=== PATIENT | female | born 1930 | race Caucasian/White ===

== ENCOUNTER 2016-11-08 18:40 | Inpatient (IN) | payer MEDICARE, BC ==
--- NOTE | 2016-11-08 19:11 | EDM.PDOC ---
ED HPI GENERAL MEDICAL PROBLEM - General Chief Complaint: General Stated Complaint: NOT FEELING GOOD, BY AMBULANCE Time Seen by Provider: 11/08/16 18:55 Source of Information: Reports: Patient History Limitations: Reports: No Limitations - History of Present Illness INITIAL COMMENTS - FREE TEXT/NARRATIVE: This 86 yo female patient was brought to the ED by [facility]. The patient reports she is not too sure why she is here, but she knows that her called the ambulance. The patient reports she has had some increased shortness of breath for the past 2-3 days. The patient reports she has noticed some swelling in her legs during the past 2-3 days also. The patient states that she has been taking all of her medications as prescribed. The patient reports her primary care provider is Dr. Watters with her last visit being about 1 month ago. The patient reports she has been sleeping in her chair for the past couple of nights due to increased shortness of breath when she lyes down. Initially, the patient was disoriented when speaking with nursing staff, but the patient was alert and oriented upon my visit with the patient. Onset: Gradual Duration: Day(s): (2-3) Location: Reports: Chest (shortness of breath), Lower Extremity, Left (swelling) , Lower Extremity, Right (swelling) Quality: Reports: Dull, Pressure Severity: Moderate Improves with: Reports: Rest Worsens with: Reports: Movement Associated Symptoms: Reports: Shortness of Breath - Related Data Allergies Allergy/AdvReac Type Severity Reaction Status Date / Time lidocaine Allergy UNKNOWN Verified 06/09/16 10:51 AMLODIPINE BESYLATE Allergy UNKNOWN Uncoded 06/09/16 10:51 Home Meds: Home Meds Amitriptyline [Elavil] 25 mg PO DAILY 11/08/16 [History] Chlorthalidone 25 mg PO DAILY 11/08/16 [History] Clopidogrel [Plavix] 75 mg PO DAILY 11/08/16 [History] Glimepiride 1 mg PO WITHBREAKFAST 11/08/16 [History] Metoprolol Tartrate [Metoprolol Tartrate] 25 mg PO BID 11/08/16 [History] Potassium Chloride 10 meq PO TID 11/08/16 [History] ED ROS GENERAL - Review of Systems Review Of Systems: ROS reveals no pertinent complaints other than HPI. ED EXAM, GENERAL - Physical Exam Exam: See Below Exam Limited By: No Limitations General Appearance: Alert, WD/WN, No Apparent Distress, Obese Eye Exam: Bilateral Eye: EOMI, Normal Inspection, PERRL Ears: Normal External Exam, Normal Canal, Hearing Grossly Normal, Normal TMs Nose: Normal Inspection, Normal Mucosa, No Blood Throat/Mouth: Normal Inspection, Normal Lips, Normal Teeth, Normal Gums, Normal Oropharynx, Normal Voice, No Airway Compromise Head: Atraumatic, Normocephalic Neck: Normal Inspection, Supple, Non-Tender, Full Range of Motion Respiratory/Chest: No Respiratory Distress, Lungs Clear, Normal Breath Sounds, No Accessory Muscle Use, Chest Non-Tender Cardiovascular: Normal Peripheral Pulses, No Gallop, No JVD, No Rub, Systolic Murmur, Other (several irregular heartbeats, PAC's on EKG) GI/Abdominal: Normal Bowel Sounds, Soft, Non-Tender, No Organomegaly, No Distention, No Abnormal Bruit, No Mass, Other (obese) (Female) Exam: Deferred Rectal (Female) Exam: Deferred Extremities: Normal Range of Motion, Non-Tender, Normal Capillary Refill, Pedal Edema Neurological: Alert, Oriented, CN II-XII Intact, Normal Cognition Psychiatric: Normal Affect, Normal Mood Skin Exam: Warm, Dry, Intact, Normal Color, No Rash Lymphatic: No Adenopathy Course - Vital Signs Last Recorded V/S: Last Vital Signs Temp 36.5 C 11/08/16 19:01 Pulse 91 11/08/16 19:01 Resp 22 H 11/08/16 19:01 BP 160/98 H 11/08/16 19:01 Pulse Ox 100 11/08/16 19:01 - Orders/Labs/Meds Orders: Active Orders 24 hr Category Date Time Status EKG Documentation Completion [RC] URGENT Care 11/08/16 19:02 Active CULTURE BLOOD [BC] Stat Lab 11/08/16 19:30 Received Labs: Laboratory Tests 11/08/16 11/08/16 11/08/16 Range/Units 19:30 19:30 19:30 WBC 7.0 (5.0-10.0) 10^3/uL RBC 4.48 (4.2-5.4) 10^6/uL Hgb 14.8 (12.0-16.0) g/dL Hct 42.0 (37.0-47.0) % MCV 93.8 (80-100) fL MCH 33.0 (27.0-34.0) pg MCHC 35.2 H (33.0-35.0) g/dL Plt Count 136 L (150-450) 10^3/uL Neut % (Auto) 66.1 (42.2-75.2) % Lymph % (Auto) 19.0 L (20.5-50.1) % [place] % (Auto) 11.2 H (2-8) % Eos % (Auto) 3.0 (1.0-3.0) % Baso % (Auto) 0.7 (0.0-1.0) % Sodium 137 (135-145) mmol/L Potassium 4.0 (3.6-5.0) mmol/L Chloride 101 (101-111) mmol/L Carbon Dioxide 24.0 (21.0-31.0) mmol/L Anion Gap 16.0 BUN 16 (7-18) mg/dL Creatinine 1.3 (0.6-1.3) mg/dL Est Cr Clr Drug Dosing TNP Estimated GFR (MDRD) 39 BUN/Creatinine Ratio 12.30 Glucose 122 H (74-105) mg/dL Lactic Acid 2.3 H (0.5-2.2) mmol/L Calcium 8.9 (8.4-10.2) mg/dl Magnesium 1.7 L (1.8-2.5) mg/dL Total Bilirubin 1.9 H (0.2-1.0) mg/dL AST 42 (10-42) IU/L ALT 15 (10-60) IU/L Alkaline Phosphatase 69 (42-121) IU/L Troponin I 0.02 (0.00-0.02) ng/ml B-Natriuretic Peptide 138 H (0-100) pg/ml Total Protein 6.7 (6.7-8.2) g/dl Albumin 3.1 L (3.2-5.5) g/dl Globulin 3.6 Albumin/Globulin Ratio 0.86 Urine Color (YELLOW) Urine Appearance (CLEAR) Urine pH (5.0-9.0) Ur Specific [place] (1.005-1.030) Urine Protein (NEGATIVE) Urine Glucose (UA) (NEGATIVE) Urine Ketones (NEGATIVE) Urine Occult Blood (NEGATIVE) Urine Nitrite (NEGATIVE) Urine Bilirubin (NEGATIVE) Urine Urobilinogen (0.2-1.0) mg/dL Ur Leukocyte Esterase (NEGATIVE) Urine RBC /HPF Urine WBC (0-5/HPF) /HPF Ur Epithelial Cells /HPF Urine Bacteria (0-FEW/HPF) /HPF 11/08/16 Range/Units 19:39 WBC (5.0-10.0) 10^3/uL RBC (4.2-5.4) 10^6/uL Hgb (12.0-16.0) g/dL Hct (37.0-47.0) % MCV (80-100) fL MCH (27.0-34.0) pg MCHC (33.0-35.0) g/dL Plt Count (150-450) 10^3/uL Neut % (Auto) (42.2-75.2) % Lymph % (Auto) (20.5-50.1) % [place] % (Auto) (2-8) % Eos % (Auto) (1.0-3.0) % Baso % (Auto) (0.0-1.0) % Sodium (135-145) mmol/L Potassium (3.6-5.0) mmol/L Chloride (101-111) mmol/L Carbon Dioxide (21.0-31.0) mmol/L Anion Gap BUN (7-18) mg/dL Creatinine (0.6-1.3) mg/dL Est Cr Clr Drug Dosing Estimated GFR (MDRD) BUN/Creatinine Ratio Glucose (74-105) mg/dL Lactic Acid (0.5-2.2) mmol/L Calcium (8.4-10.2) mg/dl Magnesium (1.8-2.5) mg/dL Total Bilirubin (0.2-1.0) mg/dL AST (10-42) IU/L ALT (10-60) IU/L Alkaline Phosphatase (42-121) IU/L Troponin I (0.00-0.02) ng/ml B-Natriuretic Peptide (0-100) pg/ml Total Protein (6.7-8.2) g/dl Albumin (3.2-5.5) g/dl Globulin Albumin/Globulin Ratio Urine Color Yellow (YELLOW) Urine Appearance Turbid (CLEAR) Urine pH 5.5 (5.0-9.0) Ur Specific [place] 1.025 (1.005-1.030) Urine Protein 100 H (NEGATIVE) Urine Glucose (UA) Negative (NEGATIVE) Urine Ketones Trace H (NEGATIVE) Urine Occult Blood Negative (NEGATIVE) Urine Nitrite Negative (NEGATIVE) Urine Bilirubin Small H (NEGATIVE) Urine Urobilinogen 0.2 (0.2-1.0) mg/dL Ur Leukocyte Esterase Negative (NEGATIVE) Urine RBC 0-5 /HPF Urine WBC 0-5 (0-5/HPF) /HPF Ur Epithelial Cells Many H /HPF Urine Bacteria Many H (0-FEW/HPF) /HPF Departure - Departure Time of Disposition: 21:13 Disposition: Admitted As Inpatient 68 Condition: Fair Clinical Impression: Generalized weakness - Discharge Information Forms: ED Department Discharge Care Plan Goals: Discussed the history, examination, lab, EKG and x-ray results with Dr. Mullen. Dr. Mullen accepted the patient for continued evaluation and management as an inpatient at [facility]. - My Orders Last 24 Hours: My Active Orders 11/08/16 19:02 EKG Documentation Completion [RC] URGENT 11/08/16 19:30 CULTURE BLOOD [BC] Stat - Assessment/Plan Last 24 Hours: My Active Orders 11/08/16 19:02 EKG Documentation Completion [RC] URGENT 11/08/16 19:30 CULTURE BLOOD [BC] Stat
[2016-11-08 20:08] LABS: CHLORIDE,CL 101 mmol/L (101-111); SODIUM,NA 137 mmol/L (135-145)
[2016-11-08] MEDS ORDERED: Zolpidem 5 MG Tab PO PRN (22:22)
[2016-11-08] MEDS ORDERED: Docusate Sodium 100 MG Cap PO PRN (22:22)
--- NOTE | 2016-11-08 22:31 | PCM.HP ---
H&P History of Present Illness - General Date of Service: 11/08/16 Admit Problem/Dx: Admission Diagnosis/Problem Admission Diagnosis/Problem CHF, Congestive heart failure Source of Information: Patient, Family ( and daughter) - History of Present Illness Initial Comments - Free Text/Narative: 86-year-old lady with a history of hypertension, diabetes, coronary artery disease, status is edema, dementia. Lives with who is the primary caregiver. The history is limited due to patients dementia. Most of the information is obtained from the patients and daughter. Apparently she has been getting increasingly short of breath and weaker in the past few days. She could not lay down and has been sleeping in sitting up position. She has chronic lower extremity edema which is worse lately. No apparent chest pain, fever, abdominal pain. The patients has diarrhea and the patient herself had some diarrhea for a few days but that has resolved. Was brought into the emergency room by ambulance due to increasing weakness shortness of breath and massive lower extremity edema. - Related Data Allergies/Adverse Reactions: Allergies Allergy/AdvReac Type Severity Reaction Status Date / Time lidocaine Allergy UNKNOWN Verified 06/09/16 10:51 AMLODIPINE BESYLATE Allergy UNKNOWN Uncoded 06/09/16 10:51 Home Medications: Home Meds Amitriptyline [Elavil] 25 mg PO DAILY 11/08/16 [History] Chlorthalidone 25 mg PO DAILY 11/08/16 [History] Clopidogrel [Plavix] 75 mg PO DAILY 11/08/16 [History] Glimepiride 1 mg PO WITHBREAKFAST 11/08/16 [History] Metoprolol Tartrate [Metoprolol Tartrate] 25 mg PO BID 11/08/16 [History] Potassium Chloride 10 meq PO TID 11/08/16 [History] Past Medical History Cardiovascular History: Reports: CAD, High Cholesterol, Hypertension, Stents, Other (See Below) Other Cardiovascular History: stasis edema Gastrointestinal History: Reports: GERD, Hemorrhoids, Hiatal Hernia Psychiatric History: Reports: Depression Endocrine/Metabolic History: Reports: Diabetes, Type II, Obesity/BMI 30+ - Past Surgical History Cardiovascular Surgical History: Reports: Coronary Artery Stent Social & Family History - Tobacco Use Smoking Status *Q: Never Smoker Second Hand Smoke Exposure: No - Recreational Drug Use Recreational Drug Use: No H&P Review of Systems - Review of Systems: Review Of Systems: See Below General: Denies: Fever, Chills Pulmonary: Reports: Shortness of Breath. Denies: Wheezing Cardiovascular: Reports: Dyspnea on Exertion. Denies: Chest Pain, Palpitations Gastrointestinal: Reports: Diarrhea (Earlier, resolved by now). Denies: Abdominal Pain Genitourinary: Denies: Dysuria Psychiatric: Reports: Confusion Exam - Exam Exam: See Below - Vital Signs Vital Signs: Last Vital Signs Temp 36.5 C 11/08/16 19:01 Pulse 91 11/08/16 19:01 Resp 22 H 11/08/16 19:01 BP 160/98 H 11/08/16 19:01 Pulse Ox 100 11/08/16 19:01 - Exam General: Alert. No: Oriented Neck: Supple Lungs: Normal Respiratory Effort, Decreased Breath Sounds, Crackles (basilar) Cardiovascular: Regular Rate, Regular Rhythm GI/Abdominal Exam: Normal Bowel Sounds, Soft, Non-Tender, Other (morbidly obese vs. ascites) Extremities: Other (massive bilateral lower extremity edema up to the hip area.) Skin: Warm, Other (Erythema bilateral ankle area more pronounced on the right side) Neuro Extensive - Mental Status: Alert, Oriented x3 Psychiatric: Alert, Normal Mood - Patient Data Lab Results Last 24 hrs: Chest x-ray per my reading shows bilateral small pleural effusion Result Diagrams: 11/08/16 19:30 11/08/16 19:30 *Q Meaningful Use (ADM) - VTE *Q VTE Criteria *Q: - Stroke *Q Stroke Criteria *Q: - AMI *Q AMI Criteria *Q: - Problem List (1) Acute congestive heart failure SNOMED Code(s): 99502483 ICD Code: I50.9 - HEART FAILURE, UNSPECIFIED Status: Acute Current Visit : Yes (2) Coronary artery disease SNOMED Code(s): 29701874 ICD Code: I25.10 - ATHSCL HEART DISEASE OF [place] CORONARY ARTERY W/O ANG PCTRS Status: Acute Current Visit: Yes (3) Generalized weakness SNOMED Code(s): 55191478 ICD Code: R53.1 - WEAKNESS Status: Acute Current Visit: Yes Problem List Initiated/Reviewed/Updated: Yes Orders Last 24hrs: Active Orders 24 hr Category Date Time Status Patient Status [ADT] Routine ADT 11/08/16 22:22 Ordered Antiembolic Devices [RC] PER UNIT ROUTINE Care 11/08/16 22:24 Ordered Glucose [Blood Glucose Check, Bedside] [RC] QIDACANDBED Care 11/08/16 22:18 Ordered Oxygen Therapy [RC] PRN Care 11/08/16 22:22 Ordered Peripheral IV Care [RC] . DIRECTED Care 11/08/16 22:24 Ordered Up With Assistance [RC] ASDIRECTED Care 11/08/16 22:22 Ordered VTE/DVT Education [RC] PER UNIT ROUTINE Care 11/08/16 22:22 Ordered Vital Signs [RC] Q4H Care 11/08/16 22:22 Ordered OT Evaluation and Treatment [CONS] Routine Cons 11/08/16 22:18 Ordered PT Evaluation and Treatment [CONS] Routine Cons 11/08/16 22:18 Ordered Consistent Carbohydrate Diet [DIET] Diet 11/08/16 Breakfast Ordered Echo Comp wo Cont [US] Routine Exams 11/08/16 22:19 Ordered BASIC METABOLIC PANEL,BMP [CHEM] AM Lab 11/09/16 05:15 Ordered CBC WITH AUTO DIFF [HEME] AM Lab 11/09/16 05:15 Ordered CULTURE URINE [RM] Routine Lab 11/08/16 22:17 Uncollected LACTIC ACID [CHEM] AM Lab 11/09/16 05:11 Ordered MAGNESIUM [CHEM] AM Lab 11/09/16 05:11 Ordered PHOSPHORUS [CHEM] AM Lab 11/09/16 05:11 Ordered Acetaminophen [Tylenol] Med 11/08/16 22:22 Ordered 650 mg PO Q4H PRN Amitriptyline [Elavil] Med 11/09/16 09:00 Ordered 25 mg PO DAILY Aspirin Med 11/09/16 08:00 Ordered 81 mg PO WITHBREAKFAST Clopidogrel [Plavix] Med 11/09/16 09:00 Ordered 75 mg PO DAILY Docusate Sodium [Colace] Med 11/08/16 22:22 Ordered 100 mg PO BID PRN Famotidine [Pepcid] Med 11/09/16 09:00 Ordered 20 mg PO DAILY Furosemide [Lasix] Med 11/08/16 22:30 Ordered 20 mg IVPUSH BID Heparin Sodium Med 11/09/16 06:00 Ordered 5,000 units SUBCUT Q8HR Insulin Aspart [NovoLOG] Med 11/09/16 08:00 Ordered See Protocol SUBCUT TIDAC Magnesium Oxide Med 11/08/16 22:30 Ordered 250 mg PO BIDM Metoprolol Succinate [Toprol XL] Med 11/09/16 09:00 Ordered 50 mg PO DAILY Multivitamins,Therapeutic [Thera] Med 11/09/16 08:00 Ordered 1 each PO WITHBREAKFAST Ondansetron [Zofran ODT] Med 11/08/16 22:22 Ordered 4 mg PO Q4H PRN Potassium Chloride [Klor-Con 10] Med 11/09/16 09:00 Ordered 10 meq PO TID Sodium Chloride 0.9% [Saline Flush] Med 11/08/16 22:22 Ordered 10 ml FLUSH ASDIRECTED PRN Zolpidem [Ambien] Med 11/08/16 22:22 Ordered 5 mg PO BEDTIME PRN cefTRIAXone [Rocephin] 1 gm Med 11/08/16 22:30 Ordered Sodium Chloride 0.9% [Normal Saline] 50 ml IV Q24H Antiembolic Hose [OM.PC] Per Unit Routine Oth 11/08/16 22:23 Ordered Peripheral IV Insertion Adult [OM.PC] Routine Oth 11/08/16 22:22 Ordered Saline Lock Insert [OM.PC] Routine Oth 11/08/16 22:22 Ordered Resuscitation Status Routine Resus Stat 11/08/16 22:22 Ordered Medication Orders Amitriptyline HCl (Elavil) 25 mg PO DAILY [facility] Aspirin (Aspirin) 81 mg PO WITHBREAKFAST NI Clopidogrel Bisulfate (Plavix) 75 mg PO DAILY [facility] Famotidine (Pepcid) 20 mg PO DAILY [facility] Furosemide (Lasix) 20 mg IVPUSH BID [facility] Ceftriaxone Sodium 1 gm/ (Sodium Chloride) 50 mls @ 100 mls/hr IV Q24H [facility] Insulin Aspart (Novolog) 0 unit SUBCUT TIDAC NI PRN Reason: Protocol Magnesium Oxide (Magnesium Oxide) 250 mg PO BIDM [facility] Metoprolol Succinate (Toprol Xl) 50 mg PO DAILY [facility] Multivitamins (Thera) 1 each PO WITHBREAKFAST NI Potassium Chloride (Klor-Con 10) 10 meq PO TID [facility] Assessment/Plan Comment:: Acute congestive heart failure likely right-sided heart failure With massive lower extremity edema has Ascites vs massive obese abdomen We will obtain echocardiogram for further characterization Massive fluid overload With lower extremity edema and possibly ascites Treat with diuretics, start IV Lasix, hold hydrochlorothiazide Follow electrolytes and renal function test Possible cellulitis versus chronic stenosis changes due to edema Will repeat lactic acid but does not appear to have sepsis Start Rocephin Hypomagnesemia We will replace and recheck Recheck phosphorus as well History of dementia High risk for hospital related and delirium development Monitor and frequent reorientation Abnormal UA with many bacteria but negative nitrate and leukocyte esterase Likely contaminant Will check Urine culture History of diabetes We will hold the amaryl Follow blood sugars, use supplemental insulin and hypoglycemia protocol until have a pattern of blood sugars and oral intake Coronary artery disease Treat with aspirin, Plavix, metoprolol We will supplement valsartan for Candesartan Weakness Consult physical and occupational therapy for evaluation and treatment Consult social work for possible care home placement CODE STATUS has been discussed with the patient and Both would like DNR CODE STATUS
[2016-11-08] MEDS: cefTRIAXone 1 GM in Sodium Chloride 0.9% 50 ML IV SCH (23:13)
[2016-11-08] MEDS: Furosemide 20 MG/2 ML VIAL IVPUSH SCH (23:13)
[2016-11-09] MEDS: Ondansetron 4 MG Tab.DIS PO PRN ×3 (04:45→21:32)
[2016-11-09] MEDS ORDERED: LORazepam 0.5 MG Tab PO ONE (05:00)
[2016-11-09] MEDS: Heparin Sodium 5,000 Units/ML Vial SUBCUT SCH ×3 (06:09→21:31)
[2016-11-09] MEDS ORDERED: Potassium Chloride 10 MEQ Tab.ER PO SCH (09:00)
[2016-11-09] MEDS: Famotidine 20 MG Tab PO SCH (10:00)
[2016-11-09] MEDS: Nystatin Ointment 15 GM Tube TOP SCH ×2 (10:57→21:33)
[2016-11-09] MEDS: Clopidogrel 75 MG Tab PO SCH (10:59)
[2016-11-09] MEDS: Amitriptyline 25 MG Tab PO SCH (10:59)
[2016-11-09] MEDS: Aspirin 81 MG Tab.Chew PO SCH (10:59)
[2016-11-09] MEDS: Metoprolol Succinate 50 MG Tab.ER PO SCH (10:59)
[2016-11-09] MEDS: Potassium Chloride 10 MEQ Tab.ER PO SCH ×3 (11:00→17:41)
[2016-11-09] MEDS: Potassium Chloride 10 MEQ in Premix Bag 1 BAG IV SCH ×3 (11:01→20:02)
[2016-11-09] MEDS: Furosemide 20 MG/2 ML VIAL IVPUSH SCH ×2 (11:04→21:32)
--- NOTE | 2016-11-09 11:08 | PCM.PN ---
- General Info Date of Service: 11/09/16 Admission Dx/Problem (Free Text): Admission Diagnosis/Problem Admission Diagnosis/Problem CHF, Congestive heart failure Subjective Update: Remained stable overnight. Head complains of anxiety associated with shortness of breath. Improved with Ativan. No associated chest pain. She is feeling well now. Had good urine output. We had to place a Son for the frequent urination and macerated skin. Functional Status: Reports: Pain Controlled - Review of Systems General: Denies: Fever Pulmonary: Reports: Shortness of Breath Cardiovascular: Denies: Chest Pain Gastrointestinal: Denies: Abdominal Pain Neurological: Reports: Confusion - Patient Data Vitals - Most Recent: Last Vital Signs Temp 36.7 C 11/09/16 08:33 Pulse 89 11/09/16 08:33 Resp 20 11/09/16 08:33 BP 122/63 11/09/16 08:33 Pulse Ox 100 11/09/16 08:33 Weight - Most Recent: 89.902 kg I&O - Last 24 Hours: Intake & Output 11/08/16 11/09/16 11/09/16 22:59 06:59 14:59 Intake Total 44 Output Total 1600 Balance -1556 Lab Results Last 24 Hours: Laboratory Results - last 24 hr 11/09/16 11/09/16 11/09/16 Range/Units 06:54 06:54 06:54 WBC 7.0 (5.0-10.0) 10^3/uL RBC 4.41 (4.2-5.4) 10^6/uL Hgb 14.2 (12.0-16.0) g/dL Hct 42.3 (37.0-47.0) % MCV 95.9 (80-100) fL MCH 32.2 (27.0-34.0) pg MCHC 33.6 (33.0-35.0) g/dL Plt Count 136 L (150-450) 10^3/uL Neut % (Auto) 72.4 (42.2-75.2) % Lymph % (Auto) 14.0 L (20.5-50.1) % [place] % (Auto) 11.1 H (2-8) % Eos % (Auto) 2.1 (1.0-3.0) % Baso % (Auto) 0.4 (0.0-1.0) % Sodium 137 (135-145) mmol/L Potassium 3.0 L (3.6-5.0) mmol/L Chloride 99 L (101-111) mmol/L Carbon Dioxide 25.0 (21.0-31.0) mmol/L Anion Gap 16.0 BUN 16 (7-18) mg/dL Creatinine 1.3 (0.6-1.3) mg/dL Est Cr Clr Drug Dosing 24.31 mL/min Estimated GFR (MDRD) 39 Glucose 144 H (74-105) mg/dL POC Glucose (83-110) mg/dl Lactic Acid 2.1 (0.5-2.2) mmol/L Calcium 8.5 (8.4-10.2) mg/dl Phosphorus 2.9 (2.5-4.6) mg/dL Magnesium 1.5 L (1.8-2.5) mg/dL 11/09/16 Range/Units 07:54 WBC (5.0-10.0) 10^3/uL RBC (4.2-5.4) 10^6/uL Hgb (12.0-16.0) g/dL Hct (37.0-47.0) % MCV (80-100) fL MCH (27.0-34.0) pg MCHC (33.0-35.0) g/dL Plt Count (150-450) 10^3/uL Neut % (Auto) (42.2-75.2) % Lymph % (Auto) (20.5-50.1) % [place] % (Auto) (2-8) % Eos % (Auto) (1.0-3.0) % Baso % (Auto) (0.0-1.0) % Sodium (135-145) mmol/L Potassium (3.6-5.0) mmol/L Chloride (101-111) mmol/L Carbon Dioxide (21.0-31.0) mmol/L Anion Gap BUN (7-18) mg/dL Creatinine (0.6-1.3) mg/dL Est Cr Clr Drug Dosing mL/min Estimated GFR (MDRD) Glucose (74-105) mg/dL POC Glucose 135 H (83-110) mg/dl Lactic Acid (0.5-2.2) mmol/L Calcium (8.4-10.2) mg/dl Phosphorus (2.5-4.6) mg/dL Magnesium (1.8-2.5) mg/dL Med Orders - Current: Current Medications Acetaminophen (Tylenol) 650 mg PO Q4H PRN PRN Reason: Pain (Mild 1-3)/fever Amitriptyline HCl (Elavil) [address] [facility] Aspirin (Aspirin) [address] [facility] Clopidogrel Bisulfate (Plavix) [address] [facility] Docusate Sodium (Colace) 100 mg PO BID PRN PRN Reason: Constipation Famotidine (Pepcid) [address] [facility] Furosemide (Lasix) [address] [facility] Last Admin: 11/08/16 23:13 Dose: 20 mg Heparin Sodium (Porcine) (Heparin Sodium) 5,[address] [facility] Last Admin: 11/09/16 06:09 Dose: Not Given Ceftriaxone Sodium 1 gm/ (Sodium Chloride) 50 mls @ 100 mls/hr IV Q24H [facility] Last Admin: 11/08/16 23:13 Dose: 100 mls/hr Potassium Chloride 10 meq/ (Premix) 100 mls @ 50 mls/hr IV Q2H [facility] Stop: 11/09/16 17:14 Insulin Aspart (Novolog) [address] [facility] PRN Reason: Protocol Magnesium Oxide (Magnesium Oxide) [address] [facility] Last Admin: 11/08/16 23:13 Dose: 250 mg Metoprolol Succinate (Toprol Xl) [address] [facility] Multivitamins (Thera) [address] [facility] Nystatin (Nystatin Ointment) [address] [facility] Ondansetron HCl (Zofran Odt) 4 mg PO Q4H PRN PRN Reason: nausea, able to take PO Last Admin: 11/09/16 04:45 Dose: 4 mg Potassium Chloride (Klor-Con 10) [address] [facility] Sodium Chloride (Saline Flush) 10 ml FLUSH ASDIRECTED PRN PRN Reason: Keep Vein Open Valsartan (Diovan) [address] [facility] Zolpidem Tartrate (Ambien) 5 mg PO BEDTIME PRN PRN Reason: Sleep Discontinued Medications Lorazepam (Ativan) 0.5 mg PO ONETIME ONE Stop: 11/09/16 05:01 Last Admin: 11/09/16 05:12 Dose: 0.5 mg Potassium Chloride (Klor-Con 10) 10 meq PO TID NI - Exam General: Alert. No: Oriented Neck: Supple Lungs: Normal Respiratory Effort, Decreased Breath Sounds, Rhonchi Cardiovascular: Regular Rate, Regular Rhythm GI/Abdominal Exam: Normal Bowel Sounds, Soft, Non-Tender, Other (Obese) Extremities: Pedal Edema (Massive bilateral edema up to thigh and lower abdominal wall.) Skin: Warm, Other (Macerated reddened area of the perineum and skin folds.) Neurological: No New Focal Deficit Psy/Mental Status: Alert, Normal Affect, Normal Mood - Problem List & Annotations (1) Acute congestive heart failure SNOMED Code(s): 68287471 Code(s): I50.9 - HEART FAILURE, UNSPECIFIED Status: Acute Current Visit: Yes (2) Coronary artery disease SNOMED Code(s): 15549675 Code(s): I25.10 - ATHSCL HEART DISEASE OF [place] CORONARY ARTERY W/O ANG PCTRS Status: Acute Current Visit: Yes (3) Generalized weakness SNOMED Code(s): 55535934 Code(s): R53.1 - WEAKNESS Status: Acute Current Visit: Yes - Problem List Review Problem List Initiated/Reviewed/Updated: Yes - My Orders Last 24 Hours: My Active Orders 11/09/16 00:13 Urinary Catheter Assessment [RC] BID 11/09/16 00:15 Insert Son Catheter [Insert Urinary Catheter] [OM.PC] Q24H 11/09/16 09:00 Nystatin [Nystatin Ointment] 1 gm TOP BID Potassium Chloride [Klor-Con 10] 20 meq PO TIDMEALS Valsartan [Diovan] 160 mg PO DAILY 11/09/16 09:15 Potassium Chloride [KCl 10 MEQ in Water 100 ML] 10 meq Premix Bag 1 bag IV Q2H 11/10/16 05:11 MAGNESIUM [CHEM] AM PHOSPHORUS [CHEM] AM 11/10/16 05:15 BASIC METABOLIC PANEL,BMP [CHEM] AM CBC WITH AUTO DIFF [HEME] AM 11/11/16 05:11 B-TYPE NATRIURETIC PEPTIDE,BNP [CHEM] AM - Plan Plan:: Acute congestive heart failure likely right-sided heart failure With massive lower extremity edema has Ascites vs massive obese abdomen We will obtain echocardiogram for further characterization on Thursday Massive fluid overload With lower extremity edema and possibly ascites Treat with diuretics, start IV Lasix, hold hydrochlorothiazide Replace hypokalemia with IV and oral supplement Follow electrolytes and renal function test Possible cellulitis versus chronic stasis changes due to edema Normal repeat lactic acid does not appear to have sepsis Started Rocephin Hypomagnesemia We will replace and recheck in the morning Recheck phosphorus as well History of dementia High risk for hospital related and delirium development Monitor and frequent reorientation Abnormal UA with many bacteria but negative nitrate and leukocyte esterase Likely contaminant Pending Urine culture History of diabetes We will hold the amaryl Follow blood sugars, use supplemental insulin and hypoglycemia protocol until have a pattern of blood sugars and oral intake Coronary artery disease Treat with aspirin, Plavix, metoprolol We will supplement valsartan for Candesartan Weakness Consult physical and occupational therapy for evaluation and treatment Consult social work for possible care home placement CODE STATUS has been discussed with the patient and on admission Both would like DNR CODE STATUS
[2016-11-09] MEDS: Insulin Aspart 100 Units/ML 3 ML Pen SUBCUT SCH ×3 (11:22→17:09)
[2016-11-09] MEDS: Multivitamins,Therapeutic Tab PO SCH (11:23)
[2016-11-10] MEDS: cefTRIAXone 1 GM in Sodium Chloride 0.9% 50 ML IV SCH ×2 (00:43→23:51)
[2016-11-10] MEDS: Potassium Chloride 10 MEQ in Premix Bag 1 BAG IV SCH ×2 (01:25→19:13)
[2016-11-10] MEDS: Heparin Sodium 5,000 Units/ML Vial SUBCUT SCH ×2 (07:02→16:23)
[2016-11-10] MEDS: Multivitamins,Therapeutic Tab PO SCH (10:20)
[2016-11-10] MEDS: Insulin Aspart 100 Units/ML 3 ML Pen SUBCUT SCH ×3 (10:29→17:06)
[2016-11-10] MEDS: Metoprolol Succinate 50 MG Tab.ER PO SCH (11:03)
[2016-11-10] MEDS: Amitriptyline 25 MG Tab PO SCH (11:04)
[2016-11-10] MEDS: Nystatin Ointment 15 GM Tube TOP SCH (11:04)
[2016-11-10] MEDS: Famotidine 20 MG Tab PO SCH (11:04)
[2016-11-10] MEDS: Furosemide 20 MG/2 ML VIAL IVPUSH SCH ×2 (11:04→23:54)
[2016-11-10] MEDS: Clopidogrel 75 MG Tab PO SCH (11:04)
[2016-11-10] MEDS: Potassium Chloride 10 MEQ Tab.ER PO SCH ×3 (11:09→17:42)
[2016-11-10] MEDS: Aspirin 81 MG Tab.Chew PO SCH (11:09)
--- NOTE | 2016-11-10 11:58 | PCM.PN ---
- General Info Date of Service: 11/10/16 Admission Dx/Problem (Free Text): Admission Diagnosis/Problem Admission Diagnosis/Problem CHF, Congestive heart failure Subjective Update: Remained stable overnight. has good uo, has been up with pt/ot, noted to have desat with activity No associated chest pain. - Review of Systems General: Reports: Weakness. Denies: Fever Pulmonary: Reports: Shortness of Breath (with activity) Cardiovascular: Denies: Chest Pain Skin: Reports: Other (moist erythema in folds) Neurological: Denies: Dizziness, Headache Psychiatric: Reports: Confusion - Patient Data Vitals - Most Recent: Last Vital Signs Temp 36.2 C 11/10/16 11:00 Pulse 68 11/10/16 11:03 Resp 20 11/10/16 11:00 BP 110/54 L 11/10/16 11:03 Pulse Ox 99 11/10/16 11:00 Weight - Most Recent: 91.852 kg I&O - Last 24 Hours: Intake & Output 11/09/16 11/10/16 11/10/16 22:59 06:59 14:59 Intake Total 100 50 321 Output Total 400 550 200 Balance -300 -500 121 Lab Results Last 24 Hours: Laboratory Results - last 24 hr 11/09/16 11/09/16 11/10/16 Range/Units 16:57 20:51 06:24 WBC 6.4 (5.0-10.0) 10^3/uL RBC 4.20 (4.2-5.4) 10^6/uL Hgb 13.6 (12.0-16.0) g/dL Hct 41.2 (37.0-47.0) % MCV 98.1 (80-100) fL MCH 32.4 (27.0-34.0) pg MCHC 33.0 (33.0-35.0) g/dL Plt Count 128 L (150-450) 10^3/uL Neut % (Auto) 69.8 (42.2-75.2) % Lymph % (Auto) 15.7 L (20.5-50.1) % [place] % (Auto) 9.7 H (2-8) % Eos % (Auto) 3.9 H (1.0-3.0) % Baso % (Auto) 0.9 (0.0-1.0) % Sodium (135-145) mmol/L Potassium (3.6-5.0) mmol/L Chloride (101-111) mmol/L Carbon Dioxide (21.0-31.0) mmol/L Anion Gap BUN (7-18) mg/dL Creatinine (0.6-1.3) mg/dL Est Cr Clr Drug Dosing mL/min Estimated GFR (MDRD) Glucose (74-105) mg/dL POC Glucose 119 H 123 H (83-110) mg/dl Calcium (8.4-10.2) mg/dl Phosphorus (2.5-4.6) mg/dL Magnesium (1.8-2.5) mg/dL 11/10/16 11/10/16 11/10/16 Range/Units 06:24 08:11 11:23 WBC (5.0-10.0) 10^3/uL RBC (4.2-5.4) 10^6/uL Hgb (12.0-16.0) g/dL Hct (37.0-47.0) % MCV (80-100) fL MCH (27.0-34.0) pg MCHC (33.0-35.0) g/dL Plt Count (150-450) 10^3/uL Neut % (Auto) (42.2-75.2) % Lymph % (Auto) (20.5-50.1) % [place]ke[place] % (Auto) (2-8) % Eos % (Auto) (1.0-3.0) % Baso % (Auto) (0.0-1.0) % Sodium 136 (135-145) mmol/L Potassium 4.6 (3.6-5.0) mmol/L Chloride 101 (101-111) mmol/L Carbon Dioxide 24.0 (21.0-31.0) mmol/L Anion Gap 15.6 BUN 17 (7-18) mg/dL Creatinine 1.3 (0.6-1.3) mg/dL Est Cr Clr Drug Dosing 24.31 mL/min Estimated GFR (MDRD) 39 Glucose 117 H (74-105) mg/dL POC Glucose 110 140 H (83-110) mg/dl Calcium 8.1 L (8.4-10.2) mg/dl Phosphorus 3.3 (2.5-4.6) mg/dL Magnesium 1.5 L (1.8-2.5) mg/dL Med Orders - Current: Current Medications Acetaminophen (Tylenol) 650 mg PO Q4H PRN PRN Reason: Pain (Mild 1-3)/fever Amitriptyline HCl (Elavil) 25 mg PO DAILY [facility] Last Admin: 11/10/16 11:04 Dose: 25 mg Aspirin (Aspirin) 81 mg PO WITHBREAKFAST [facility] Last Admin: 11/10/16 11:09 Dose: 81 mg Clopidogrel Bisulfate (Plavix) 75 mg PO DAILY [facility] Last Admin: 11/10/16 11:04 Dose: 75 mg Docusate Sodium (Colace) 100 mg PO BID PRN PRN Reason: Constipation Famotidine (Pepcid) 20 mg PO DAILY [facility] Last Admin: 11/10/16 11:04 Dose: 20 mg Furosemide (Lasix) 20 mg IVPUSH BID [facility] Last Admin: 11/10/16 11:04 Dose: 20 mg Heparin Sodium (Porcine) (Heparin Sodium) 5,000 units SUBCUT Q8HR [facility] Last Admin: 11/10/16 07:02 Dose: 5,000 units Ceftriaxone Sodium 1 gm/ (Sodium Chloride) 50 mls @ 100 mls/hr IV Q24H [facility] Last Admin: 11/10/16 00:43 Dose: 100 mls/hr Insulin Aspart (Novolog) 0 unit SUBCUT TIDAC [facility] PRN Reason: Protocol Last Admin: 11/10/16 10:29 Dose: Not Given Magnesium Oxide (Magnesium Oxide) 250 mg PO BIDM [facility] Last Admin: 11/10/16 11:09 Dose: 250 mg Metoprolol Succinate (Toprol Xl) 50 mg PO DAILY [facility] Last Admin: 11/10/16 11:03 Dose: 50 mg Multivitamins (Thera) 1 each PO WITHBREAKFAST [facility] Last Admin: 11/09/16 11:23 Dose: 1 each Nystatin (Nystatin Ointment) 1 gm TOP BID [facility] Last Admin: 11/10/16 11:04 Dose: 1 applic Ondansetron HCl (Zofran Odt) 4 mg PO Q4H PRN PRN Reason: nausea, able to take PO Last Admin: 11/09/16 21:32 Dose: 4 mg Potassium Chloride (Klor-Con 10) 20 meq PO TIDMEALS [facility] Last Admin: 11/10/16 11:09 Dose: 20 meq Sodium Chloride (Saline Flush) 10 ml FLUSH ASDIRECTED PRN PRN Reason: Keep Vein Open Valsartan (Diovan) 160 mg PO DAILY [facility] Last Admin: 11/10/16 11:00 Dose: 160 mg Zolpidem Tartrate (Ambien) 5 mg PO BEDTIME PRN PRN Reason: Sleep Discontinued Medications Potassium Chloride 10 meq/ (Premix) 100 mls @ 50 mls/hr IV Q2H [facility] Stop: 11/09/16 17:14 Last Admin: 11/09/16 15:12 Dose: 50 mls/hr Potassium Chloride 10 meq/ (Premix) 100 mls @ 25 mls/hr IV Q4H [facility] Stop: 11/10/16 03:59 Last Admin: 11/10/16 01:25 Dose: 25 mls/hr Lorazepam (Ativan) 0.5 mg PO ONETIME ONE Stop: 11/09/16 05:01 Last Admin: 11/09/16 05:12 Dose: 0.5 mg Potassium Chloride (Klor-Con 10) 10 meq PO TID [facility] Last Admin: 11/09/16 12:30 Dose: Not Given - Exam General: Alert. No: Oriented Neck: Supple Lungs: Normal Respiratory Effort, Rhonchi Cardiovascular: Regular Rate, Regular Rhythm GI/Abdominal Exam: Normal Bowel Sounds, Non-Tender Extremities: Pedal Edema (upt to thigh, abdomen ) Skin: Warm, Other (moist erythema of folds) Psy/Mental Status: Alert, Normal Affect, Normal Mood - Problem List & Annotations (1) Acute congestive heart failure SNOMED Code(s): 61551262 Code(s): I50.9 - HEART FAILURE, UNSPECIFIED Status: Acute Current Visit: Yes (2) Coronary artery disease SNOMED Code(s): 72768715 Code(s): I25.10 - ATHSCL HEART DISEASE OF [place] CORONARY ARTERY W/O ANG PCTRS Status: Acute Current Visit: Yes (3) Generalized weakness SNOMED Code(s): 92663288 Code(s): R53.1 - WEAKNESS Status: Acute Current Visit: Yes - Problem List Review Problem List Initiated/Reviewed/Updated: Yes - My Orders Last 24 Hours: My Active Orders 11/10/16 04:20 C DIFFICILE TOXIN BY PCR [MREF] Routine 11/10/16 10:00 Echo Comp wo Cont [US] Routine 11/11/16 05:11 B-TYPE NATRIURETIC PEPTIDE,BNP [CHEM] AM MAGNESIUM [CHEM] AM PHOSPHORUS [CHEM] AM 11/11/16 05:15 BASIC METABOLIC PANEL,BMP [CHEM] AM CBC WITH AUTO DIFF [HEME] AM - Plan Plan:: Acute congestive heart failure likely right-sided heart failure With massive lower extremity edema has Ascites vs massive obese abdomen We will obtain echocardiogram for further characterization today Massive fluid overload With lower extremity edema and possibly ascites Treat with diuretics, IV Lasix, hold hydrochlorothiazide continue K oral supplement Follow electrolytes and renal function test Possible cellulitis versus chronic stasis changes due to edema redness is resolving Normal repeat lactic acid does not appear to have sepsis Started Rocephin Hypomagnesemia We will continue to replace History of dementia High risk for hospital related and delirium development Monitor and frequent reorientation Abnormal UA with many bacteria but negative nitrate and leukocyte esterase Likely contaminant Pending Urine culture History of diabetes We will hold the amaryl Follow blood sugars, use supplemental insulin and hypoglycemia protocol until have a pattern of blood sugars and oral intake Coronary artery disease Treat with aspirin, Plavix, metoprolol We will supplement valsartan for Candesartan Weakness work with physical and occupational therapy for evaluation and treatment Consulted and d/w social work for possible correction placement CODE STATUS has been discussed with the patient and on admission Both would like DNR CODE STATUS
[2016-11-10] MEDS ORDERED: LORazepam 2 MG/ML Syringe IM ONE (20:46)
[2016-11-10] MEDS: Sodium Chloride 0.9% 10 ML Syringe FLUSH PRN (23:50)
[2016-11-11] MEDS: Heparin Sodium 5,000 Units/ML Vial SUBCUT SCH ×4 (00:02→22:20)
[2016-11-11] MEDS: Sodium Chloride 0.9% 10 ML Syringe FLUSH PRN ×2 (00:39→00:44)
[2016-11-11] MEDS: Furosemide 20 MG/2 ML VIAL IVPUSH SCH ×3 (00:40→22:21)
[2016-11-11] MEDS: Insulin Aspart 100 Units/ML 3 ML Pen SUBCUT SCH ×3 (08:11→17:53)
--- NOTE | 2016-11-11 09:25 | EKG ---
11/08/2016- SUJEY CASTELAN - EKG per my reading shows sinus rhythm at a rate of 90s with occasional PACs. [facility] /[id number]
[2016-11-11] MEDS: Multivitamins,Therapeutic Tab PO SCH (10:13)
[2016-11-11] MEDS: Potassium Chloride 10 MEQ Tab.ER PO SCH ×3 (10:14→17:59)
[2016-11-11] MEDS: Aspirin 81 MG Tab.Chew PO SCH (10:14)
[2016-11-11] MEDS: Famotidine 20 MG Tab PO SCH (10:14)
[2016-11-11] MEDS: Amitriptyline 25 MG Tab PO SCH (10:14)
[2016-11-11] MEDS: Clopidogrel 75 MG Tab PO SCH (10:14)
[2016-11-11] MEDS: Metoprolol Succinate 50 MG Tab.ER PO SCH (10:15)
[2016-11-11] MEDS: Nystatin Ointment 15 GM Tube TOP SCH ×3 (10:15→22:20)
--- NOTE | 2016-11-11 11:05 | PCM.PN ---
- General Info Date of Service: 11/11/16 Admission Dx/Problem (Free Text): Admission Diagnosis/Problem Admission Diagnosis/Problem CHF, Congestive heart failure Subjective Update: has lower uo, has been up with pt/ot, noted to have desat with activity No associated chest pain. had episodes of confusion, agitation, agressive behavior to staff improved after ativan Functional Status: Reports: Pain Controlled - Review of Systems General: Denies: Fever, Weakness Pulmonary: Denies: Shortness of Breath Cardiovascular: Denies: Chest Pain Gastrointestinal: Denies: Abdominal Pain Genitourinary: Denies: Hematuria Skin: Reports: Rash Neurological: Reports: Confusion Psychiatric: Reports: Mood Lability, Agitation - Patient Data Vitals - Most Recent: Last Vital Signs Temp 35.8 C 11/11/16 07:00 Pulse 66 11/11/16 10:15 Resp 20 11/11/16 07:00 BP 90/35 L 11/11/16 10:15 Pulse Ox 96 11/11/16 07:00 Weight - Most Recent: 93.667 kg I&O - Last 24 Hours: Intake & Output 11/10/16 11/11/16 11/11/16 22:59 06:59 14:59 Intake Total 93 0 Output Total 200 125 Balance -200 -32 0 Lab Results Last 24 Hours: Laboratory Results - last 24 hr 11/10/16 11/10/16 11/10/16 Range/Units 11:23 16:50 21:30 WBC (5.0-10.0) 10^3/uL RBC (4.2-5.4) 10^6/uL Hgb (12.0-16.0) g/dL Hct (37.0-47.0) % MCV (80-100) fL MCH (27.0-34.0) pg MCHC (33.0-35.0) g/dL Plt Count (150-450) 10^3/uL Neut % (Auto) (42.2-75.2) % Lymph % (Auto) (20.5-50.1) % [place] % (Auto) (2-8) % Eos % (Auto) (1.0-3.0) % Baso % (Auto) (0.0-1.0) % Sodium (135-145) mmol/L Potassium (3.6-5.0) mmol/L Chloride (101-111) mmol/L Carbon Dioxide (21.0-31.0) mmol/L Anion Gap BUN (7-18) mg/dL Creatinine (0.6-1.3) mg/dL Est Cr Clr Drug Dosing mL/min Estimated GFR (MDRD) Glucose (74-105) mg/dL POC Glucose 140 H 121 H 129 H (83-110) mg/dl Calcium (8.4-10.2) mg/dl Phosphorus (2.5-4.6) mg/dL Magnesium (1.8-2.5) mg/dL B-Natriuretic Peptide (0-100) pg/ml 11/11/16 11/11/16 11/11/16 Range/Units 07:21 07:21 08:03 WBC 6.9 (5.0-10.0) 10^3/uL RBC 4.42 (4.2-5.4) 10^6/uL Hgb 14.4 (12.0-16.0) g/dL Hct 43.6 (37.0-47.0) % MCV 98.6 (80-100) fL MCH 32.6 (27.0-34.0) pg MCHC 33.0 (33.0-35.0) g/dL Plt Count 140 L (150-450) 10^3/uL Neut % (Auto) 71.7 (42.2-75.2) % Lymph % (Auto) 13.0 L (20.5-50.1) % [place] % (Auto) 9.8 H (2-8) % Eos % (Auto) 4.8 H (1.0-3.0) % Baso % (Auto) 0.7 (0.0-1.0) % Sodium 136 (135-145) mmol/L Potassium 4.9 (3.6-5.0) mmol/L Chloride 101 (101-111) mmol/L Carbon Dioxide 23.0 (21.0-31.0) mmol/L Anion Gap 16.9 BUN 20 H (7-18) mg/dL Creatinine 1.8 H (0.6-1.3) mg/dL Est Cr Clr Drug Dosing 17.56 mL/min Estimated GFR (MDRD) 27 Glucose 108 H (74-105) mg/dL POC Glucose 104 (83-110) mg/dl Calcium 8.3 L (8.4-10.2) mg/dl Phosphorus 3.4 (2.5-4.6) mg/dL Magnesium 1.5 L (1.8-2.5) mg/dL B-Natriuretic Peptide 242 H (0-100) pg/ml Ko Results Last 24 Hours: Microbiology 11/10/16 04:20 Clostridium difficile (PCR) - Final Stool / Feces - Stool, Liquid Med Orders - Current: Current Medications Acetaminophen (Tylenol) 650 mg PO Q4H PRN PRN Reason: Pain (Mild 1-3)/fever Amitriptyline HCl (Elavil) 25 mg PO BEDTIME [facility] Aspirin (Aspirin) 81 mg PO WITHBREAKFAST [facility] Last Admin: 11/11/16 10:14 Dose: 81 mg Clopidogrel Bisulfate (Plavix) 75 mg PO DAILY [facility] Last Admin: 11/11/16 10:14 Dose: 75 mg Docusate Sodium (Colace) 100 mg PO BID PRN PRN Reason: Constipation Famotidine (Pepcid) 20 mg PO DAILY [facility] Last Admin: 11/11/16 10:14 Dose: 20 mg Furosemide (Lasix) 20 mg IVPUSH BID [facility] Last Admin: 11/11/16 10:15 Dose: 20 mg Heparin Sodium (Porcine) (Heparin Sodium) 5,000 units SUBCUT Q8HR [facility] Last Admin: 11/11/16 06:46 Dose: Not Given Ceftriaxone Sodium 1 gm/ (Sodium Chloride) 50 mls @ 100 mls/hr IV Q24H [facility] Last Admin: 11/10/16 23:51 Dose: 100 mls/hr Insulin Aspart (Novolog) 0 unit SUBCUT TIDAC [facility] PRN Reason: Protocol Last Admin: 11/11/16 08:11 Dose: Not Given Magnesium Oxide (Magnesium Oxide) 250 mg PO BIDM [facility] Last Admin: 11/11/16 10:14 Dose: 250 mg Metoprolol Succinate (Toprol Xl) 50 mg PO DAILY [facility] Last Admin: 11/11/16 10:15 Dose: Not Given Multivitamins (Thera) 1 each PO WITHBREAKFAST [facility] Last Admin: 11/11/16 10:13 Dose: 1 each Nystatin (Nystatin Ointment) 1 gm TOP BID [facility] Last Admin: 11/11/16 10:15 Dose: 1 applic Ondansetron HCl (Zofran Odt) 4 mg PO Q4H PRN PRN Reason: nausea, able to take PO Last Admin: 11/09/16 21:32 Dose: 4 mg Potassium Chloride (Klor-Con 10) 20 meq PO TIDMEALS [facility] Last Admin: 11/11/16 10:14 Dose: 20 meq Sodium Chloride (Saline Flush) 10 ml FLUSH ASDIRECTED PRN PRN Reason: Keep Vein Open Last Admin: 11/11/16 00:44 Dose: 10 ml Zolpidem Tartrate (Ambien) 5 mg PO BEDTIME PRN PRN Reason: Sleep Discontinued Medications Amitriptyline HCl (Elavil) 25 mg PO DAILY [facility] Last Admin: 11/11/16 10:14 Dose: 25 mg Potassium Chloride 10 meq/ (Premix) 100 mls @ 50 mls/hr IV Q2H [facility] Stop: 11/09/16 17:14 Last Admin: 11/10/16 19:13 Dose: Not Given Potassium Chloride 10 meq/ (Premix) 100 mls @ 25 mls/hr IV Q4H [facility] Stop: 11/10/16 03:59 Last Admin: 11/10/16 01:25 Dose: 25 mls/hr Lorazepam (Ativan) 0.5 mg PO ONETIME ONE Stop: 11/09/16 05:01 Last Admin: 11/09/16 05:12 Dose: 0.5 mg Lorazepam (Ativan) 1 mg IM ONETIME ONE Stop: 11/10/16 20:47 Last Admin: 11/10/16 21:03 Dose: 1 mg Potassium Chloride (Klor-Con 10) 10 meq PO TID [facility] Last Admin: 11/09/16 12:30 Dose: Not Given Valsartan (Diovan) 160 mg PO DAILY [facility] Last Admin: 11/11/16 10:14 Dose: Not Given - Exam General: Alert, Oriented Neck: Supple Lungs: Clear to Auscultation, Normal Respiratory Effort Cardiovascular: Regular Rate, Regular Rhythm GI/Abdominal Exam: Normal Bowel Sounds, Soft, Other (obese) Extremities: Pedal Edema (massive b/l edema upto thigh) Skin: Warm, Dry Neurological: No New Focal Deficit Psy/Mental Status: Alert, Agitated (episodically) - Problem List & Annotations (1) Acute congestive heart failure SNOMED Code(s): 74168386 Code(s): I50.9 - HEART FAILURE, UNSPECIFIED Status: Acute Current Visit: Yes (2) Coronary artery disease SNOMED Code(s): 05377825 Code(s): I25.10 - ATHSCL HEART DISEASE OF [place] CORONARY ARTERY W/O ANG PCTRS Status: Acute Current Visit: Yes (3) Generalized weakness SNOMED Code(s): 01308136 Code(s): R53.1 - WEAKNESS Status: Acute Current Visit: Yes - Problem List Review Problem List Initiated/Reviewed/Updated: Yes - My Orders Last 24 Hours: My Active Orders 11/11/16 09:27 OT Evaluation and Treatment [CONS] Routine 11/11/16 10:57 Abdomen Pelvis wo Cont [CT] Routine 11/12/16 05:15 BASIC METABOLIC PANEL,BMP [CHEM] AM CBC WITH AUTO DIFF [HEME] AM 11/12/16 21:00 Amitriptyline [Elavil] 25 mg PO BEDTIME - Plan Plan:: Acute congestive heart failure likely right-sided heart failure With massive lower extremity edema has Ascites vs massive obese abdomen pending echocardiogram for further characterization will obtain ct abd, pelvis w/o contrast to eval for mass, ascites lymphedema wraps Massive fluid overload With lower extremity edema and possibly ascites Treat with diuretics, IV Lasix, hold hydrochlorothiazide continue K oral supplement Follow electrolytes and renal function test acute on chronic renal failure stop ARB cont current diuretic dose monitor elytes Possible cellulitis versus chronic stasis changes due to edema redness is resolving Normal repeat lactic acid does not appear to have sepsis Started Rocephin Hypomagnesemia We will continue to replace History of dementia epsiodes of hospital related delirium Monitor and frequent reorientation Abnormal UA with many bacteria but negative nitrate and leukocyte esterase Likely contaminant Pending Urine culture History of diabetes We will hold the amaryl Follow blood sugars, use supplemental insulin and hypoglycemia protocol until have a pattern of blood sugars and oral intake Coronary artery disease Treat with aspirin, Plavix, metoprolol hold erb re: renal failure Weakness work with physical and occupational therapy for evaluation and treatment Consulted and d/w social work for possible alf placement CODE STATUS has been discussed with the patient and on admission Both would like DNR CODE STATUS
[2016-11-11] MEDS ORDERED: Barium Sulfate w/v 2.1% Oral Susp 450 ML Bottle PO ONE ×2 (12:27→13:02)
--- NOTE | 2016-11-11 15:43 | CT ---
Clinical history: 86-year-old obese female with "massive" leg edema. Scan technique volume acquisition of data abdomen and pelvis obtained after oral ingestion contrast but without IV contrast (abnormally elevated serum creatinine) while the patient was lying supine on the Siemens multi slice scanner [place], [place]. All data archived in the PACS system for storage, reformatting axial/sagittal/coronal planes and study. Interpretation: Abnormal. 1. *Extensive anasarca; bibasilar dependent large pleural effusions; large volume ascites. 2. Atheromatous coronary artery calcifications and left ventricular prominence. Bibasilar atelectasi s. 3. 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 De nse calcifications normal caliber abdominal aorta i.e. no sign of aneurysm or dissection. 4. Small liver with nodular contour but no intrahepatic mass lesion on this unenhanced exam. No hepa tic ductal dilatation. Suggestion some midepigastric varices but small spleen. Stomach, pancreas, ad renal glands and kidneys unremarkable. 5. No pelvic or abdominal mass lesion. No retroperitoneal lymphadenopathy. No bowel obstruction or f ree intraperitoneal air. CONCLUSION: Anasarca, pleural effusions and ascites. Cirrhotic appearing liver. No sign primary or m etastatic malignancy.
[2016-11-11] MEDS: ZINC OXIDE TOP SCH (22:19)
[2016-11-11] MEDS: HYDROCERIN TOP SCH (22:19)
[2016-11-11] MEDS: NYSTATIN TOP SCH (22:19)
[2016-11-11] MEDS: Acetaminophen 325 MG Tab PO PRN (22:21)
[2016-11-11] MEDS: cefTRIAXone 1 GM in Sodium Chloride 0.9% 50 ML IV SCH (22:24)
[2016-11-12] MEDS: Heparin Sodium 5,000 Units/ML Vial SUBCUT SCH ×3 (06:29→21:45)
[2016-11-12] MEDS: Clopidogrel 75 MG Tab PO SCH (08:49)
[2016-11-12] MEDS: Potassium Chloride 10 MEQ Tab.ER PO SCH ×3 (08:49→17:50)
[2016-11-12] MEDS: Multivitamins,Therapeutic Tab PO SCH (08:50)
[2016-11-12] MEDS: Aspirin 81 MG Tab.Chew PO SCH (08:50)
[2016-11-12] MEDS: Metoprolol Succinate 50 MG Tab.ER PO SCH (08:50)
[2016-11-12] MEDS: Famotidine 20 MG Tab PO SCH (08:51)
[2016-11-12] MEDS: Furosemide 20 MG/2 ML VIAL IVPUSH SCH (08:52)
[2016-11-12] MEDS: Sodium Chloride 0.9% 10 ML Syringe FLUSH PRN (08:53)
[2016-11-12] MEDS: Insulin Aspart 100 Units/ML 3 ML Pen SUBCUT SCH ×3 (08:57→17:15)
[2016-11-12] MEDS: NYSTATIN TOP SCH ×2 (10:12→21:46)
[2016-11-12] MEDS: HYDROCERIN TOP SCH ×2 (10:12→21:46)
[2016-11-12] MEDS: Nystatin Ointment 15 GM Tube TOP SCH ×2 (10:12→21:47)
[2016-11-12] MEDS: ZINC OXIDE TOP SCH ×2 (10:12→21:46)
--- NOTE | 2016-11-12 15:49 | PCM.PN ---
- General Info Date of Service: 11/12/16 Subjective Update: has been up with pt/ot, noted to have desat with activity No associated chest pain. Continues to be confused but no more agitation, agressive behavior to staff Started on bilateral lower extremity lymphedema wraps Functional Status: Reports: Tolerating Diet - Review of Systems General: Denies: Fever Pulmonary: Reports: Shortness of Breath (With activity) Cardiovascular: Denies: Chest Pain Gastrointestinal: Denies: Abdominal Pain Genitourinary: Reports: Other (Has Son catheter with molder meat urine today than yesterday) Neurological: Reports: Confusion - Patient Data Vitals - Most Recent: Last Vital Signs Temp 35.8 C 11/12/16 11:55 Pulse 68 11/12/16 11:55 Resp 20 11/12/16 11:55 BP 119/43 L 11/12/16 11:55 Pulse Ox 97 11/12/16 11:55 Weight - Most Recent: 92.561 kg I&O - Last 24 Hours: Intake & Output 11/12/16 11/12/16 11/12/16 06:59 14:59 22:59 Intake Total 731 Output Total 475 Balance 256 Lab Results Last 24 Hours: Laboratory Results - last 24 hr 11/11/16 11/11/16 11/12/16 Range/Units 17:14 21:19 06:25 WBC 7.4 (5.0-10.0) 10^3/uL RBC 3.90 L (4.2-5.4) 10^6/uL Hgb 12.6 (12.0-16.0) g/dL Hct 38.0 (37.0-47.0) % MCV 97.4 (80-100) fL MCH 32.3 (27.0-34.0) pg MCHC 33.2 (33.0-35.0) g/dL Plt Count 135 L (150-450) 10^3/uL Neut % (Auto) 65.9 (42.2-75.2) % Lymph % (Auto) 17.0 L (20.5-50.1) % [place] % (Auto) 11.3 H (2-8) % Eos % (Auto) 5.1 H (1.0-3.0) % Baso % (Auto) 0.7 (0.0-1.0) % Sodium (135-145) mmol/L Potassium (3.6-5.0) mmol/L Chloride (101-111) mmol/L Carbon Dioxide (21.0-31.0) mmol/L Anion Gap BUN (7-18) mg/dL Creatinine (0.6-1.3) mg/dL Est Cr Clr Drug Dosing mL/min Estimated GFR (MDRD) Glucose (74-105) mg/dL POC Glucose 126 H 143 H (83-110) mg/dl Calcium (8.4-10.2) mg/dl 11/12/16 11/12/16 11/12/16 Range/Units 06:25 07:57 11:18 WBC (5.0-10.0) 10^3/uL RBC (4.2-5.4) 10^6/uL Hgb (12.0-16.0) g/dL Hct (37.0-47.0) % MCV (80-100) fL MCH (27.0-34.0) pg MCHC (33.0-35.0) g/dL Plt Count (150-450) 10^3/uL Neut % (Auto) (42.2-75.2) % Lymph % (Auto) (20.5-50.1) % [place] % (Auto) (2-8) % Eos % (Auto) (1.0-3.0) % Baso % (Auto) (0.0-1.0) % Sodium 133 L (135-145) mmol/L Potassium 4.6 (3.6-5.0) mmol/L Chloride 99 L (101-111) mmol/L Carbon Dioxide 24.0 (21.0-31.0) mmol/L Anion Gap 14.6 BUN 26 H (7-18) mg/dL Creatinine 2.5 H (0.6-1.3) mg/dL Est Cr Clr Drug Dosing 12.64 mL/min Estimated GFR (MDRD) 18 Glucose 100 (74-105) mg/dL POC Glucose 108 146 H (83-110) mg/dl Calcium 8.1 L (8.4-10.2) mg/dl Med Orders - Current: Current Medications Acetaminophen (Tylenol) 650 mg PO Q4H PRN PRN Reason: Pain (Mild 1-3)/fever Last Admin: 11/11/16 22:21 Dose: 650 mg Amitriptyline HCl (Elavil) 25 mg PO BEDTIME [facility] Aspirin (Aspirin) 81 mg PO WITHBREAKFAST [facility] Last Admin: 11/12/16 08:50 Dose: 81 mg Clopidogrel Bisulfate (Plavix) 75 mg PO DAILY [facility] Last Admin: 11/12/16 08:49 Dose: 75 mg Docusate Sodium (Colace) 100 mg PO BID PRN PRN Reason: Constipation Famotidine (Pepcid) 20 mg PO DAILY [facility] Last Admin: 11/12/16 08:51 Dose: 20 mg Furosemide (Lasix) 40 mg IVPUSH BID [facility] Heparin Sodium (Porcine) (Heparin Sodium) 5,000 units SUBCUT Q8HR [facility] Last Admin: 11/12/16 14:22 Dose: 5,000 units Ceftriaxone Sodium 1 gm/ (Sodium Chloride) 50 mls @ 100 mls/hr IV Q24H [facility] Last Admin: 11/11/16 22:24 Dose: 100 mls/hr Insulin Aspart (Novolog) 0 unit SUBCUT TIDAC [facility] PRN Reason: Protocol Last Admin: 11/12/16 11:57 Dose: Not Given Magnesium Oxide (Magnesium Oxide) 250 mg PO BIDM [facility] Last Admin: 11/12/16 08:50 Dose: 250 mg Metoprolol Succinate (Toprol Xl) 50 mg PO DAILY [facility] Last Admin: 11/12/16 08:50 Dose: 50 mg Multivitamins (Thera) 1 each PO WITHBREAKFAST [facility] Last Admin: 11/12/16 08:50 Dose: 1 each Compd:Nystatin Powd/Zinc Ox/Hydrocerin Crm 0 each TOP BID [facility] Last Admin: 11/12/16 10:12 Dose: 1 each Nystatin (Nystatin Ointment) 1 gm TOP BID [facility] Last Admin: 11/12/16 10:12 Dose: 1 applic Ondansetron HCl (Zofran Odt) 4 mg PO Q4H PRN PRN Reason: nausea, able to take PO Last Admin: 11/09/16 21:32 Dose: 4 mg Potassium Chloride (Klor-Con 10) 20 meq PO TIDMEALS [facility] Last Admin: 11/12/16 12:14 Dose: 20 meq Sodium Chloride (Saline Flush) 10 ml FLUSH ASDIRECTED PRN PRN Reason: Keep Vein Open Last Admin: 11/12/16 08:53 Dose: 10 ml Zolpidem Tartrate (Ambien) 5 mg PO BEDTIME PRN PRN Reason: Sleep Discontinued Medications Amitriptyline HCl (Elavil) 25 mg PO DAILY [facility] Last Admin: 11/11/16 10:14 Dose: 25 mg Barium Sulfate (Readi-Cat 2) 450 ml PO ONETIME ONE Stop: 11/11/16 12:28 Last Admin: 11/11/16 13:02 Dose: 450 ml Barium Sulfate (Readi-Cat 2) 450 ml PO ONETIME ONE Stop: 11/11/16 13:03 Last Admin: 11/11/16 13:31 Dose: 450 ml Furosemide (Lasix) 20 mg IVPUSH BID [facility] Last Admin: 11/12/16 08:52 Dose: 20 mg Potassium Chloride 10 meq/ (Premix) 100 mls @ 50 mls/hr IV Q2H NI Stop: 11/09/16 17:14 Last Admin: 11/10/16 19:13 Dose: Not Given Potassium Chloride 10 meq/ (Premix) 100 mls @ 25 mls/hr IV Q4H NI Stop: 11/10/16 03:59 Last Admin: 11/10/16 01:25 Dose: 25 mls/hr Lorazepam (Ativan) 0.5 mg PO ONETIME ONE Stop: 11/09/16 05:01 Last Admin: 11/09/16 05:12 Dose: 0.5 mg Lorazepam (Ativan) 1 mg IM ONETIME ONE Stop: 11/10/16 20:47 Last Admin: 11/10/16 21:03 Dose: 1 mg Potassium Chloride (Klor-Con 10) 10 meq PO TID [facility] Last Admin: 11/09/16 12:30 Dose: Not Given Valsartan (Diovan) 160 mg PO DAILY [facility] Last Admin: 11/11/16 10:14 Dose: Not Given - Exam General: Alert. No: Oriented Neck: Supple Lungs: Decreased Breath Sounds, Rhonchi Cardiovascular: Regular Rate, Regular Rhythm GI/Abdominal Exam: Normal Bowel Sounds, Soft, Other (obese/ascites) Extremities: Pedal Edema Skin: Warm, Moist, Rash (moist rash in folds) Neurological: No New Focal Deficit Psy/Mental Status: Alert - Problem List & Annotations (1) Acute congestive heart failure SNOMED Code(s): 71896454 Code(s): I50.9 - HEART FAILURE, UNSPECIFIED Status: Acute Current Visit: Yes Qualifiers: Congestive heart failure type: diastolic Qualified Code(s): I50.31 - Acute diastolic (congestive) heart failure (2) Coronary artery disease SNOMED Code(s): 57329057 Code(s): I25.10 - ATHSCL HEART DISEASE OF [place] CORONARY ARTERY W/O ANG PCTRS Status: Acute Current Visit: Yes (3) Generalized weakness SNOMED Code(s): 06115914 Code(s): R53.1 - WEAKNESS Status: Acute Current Visit: Yes - Problem List Review Problem List Initiated/Reviewed/Updated: Yes - My Orders Last 24 Hours: My Active Orders 11/11/16 21:00 Non-Formulary Medication [NF Drug] 0 each TOP BID 11/12/16 21:00 Amitriptyline [Elavil] 25 mg PO BEDTIME Furosemide [Lasix] 40 mg IVPUSH BID 11/13/16 05:15 BASIC METABOLIC PANEL,BMP [CHEM] AM CBC WITH AUTO DIFF [HEME] AM - Plan Plan:: Acute diastolic congestive heart failure With massive lower extremity edema has Ascites and pleural effusion echocardiogram showed ef:60-65% Ct abd, pelvis w/o contrast showed no mass, but ascites and pleural effusion was noted continue lymphedema wraps, increase diuretics Massive fluid overload With lower extremity edema and possibly ascites Treat with diuretics, IV Lasix, hold hydrochlorothiazide increase lasix continue K oral supplement Follow electrolytes and renal function test consider HD/thoracentesis/paracentesis as needed acute on chronic renal failure worsening stop ARB increase lasix monitor elytes, consider HD if no improvement Possible cellulitis versus chronic stasis changes due to edema redness is resolving Normal repeat lactic acid does not appear to have sepsis Started Rocephin History of dementia epsiodes of hospital related delirium Monitor and frequent reorientation Abnormal UA with many bacteria but negative nitrate and leukocyte esterase Likely contaminant Pending Urine culture History of diabetes We will hold the amaryl Follow blood sugars, use supplemental insulin and hypoglycemia protocol until have a pattern of blood sugars and oral intake Coronary artery disease Treat with aspirin, Plavix, metoprolol hold arb re: renal failure Weakness work with physical and occupational therapy for evaluation and treatment Consulted and d/w social work for possible fdc placement CODE STATUS has been discussed with the patient and on admission Both would like DNR CODE STATUS
[2016-11-12] MEDS: Furosemide 40 MG/4 ML VIAL IVPUSH SCH (21:46)
[2016-11-12] MEDS: Amitriptyline 25 MG Tab PO SCH (21:48)
[2016-11-12] MEDS: cefTRIAXone 1 GM in Sodium Chloride 0.9% 50 ML IV SCH (22:01)
[2016-11-13] MEDS: Acetaminophen 325 MG Tab PO PRN (02:06)
[2016-11-13] MEDS: Heparin Sodium 5,000 Units/ML Vial SUBCUT SCH ×3 (06:30→21:32)
[2016-11-13] MEDS: Famotidine 20 MG Tab PO SCH (09:10)
[2016-11-13] MEDS: Clopidogrel 75 MG Tab PO SCH (09:10)
[2016-11-13] MEDS: Aspirin 81 MG Tab.Chew PO SCH (09:10)
[2016-11-13] MEDS: Potassium Chloride 10 MEQ Tab.ER PO SCH ×3 (09:10→18:01)
[2016-11-13] MEDS: Insulin Aspart 100 Units/ML 3 ML Pen SUBCUT SCH ×3 (09:10→17:55)
[2016-11-13] MEDS: Multivitamins,Therapeutic Tab PO SCH (09:10)
[2016-11-13] MEDS: NYSTATIN TOP SCH ×2 (09:11→21:33)
[2016-11-13] MEDS: Furosemide 40 MG/4 ML VIAL IVPUSH SCH ×2 (09:11→21:32)
[2016-11-13] MEDS: HYDROCERIN TOP SCH ×2 (09:11→21:33)
[2016-11-13] MEDS: ZINC OXIDE TOP SCH ×2 (09:11→21:33)
[2016-11-13] MEDS: Nystatin Ointment 15 GM Tube TOP SCH ×2 (09:11→21:33)
[2016-11-13] MEDS: Metoprolol Succinate 50 MG Tab.ER PO SCH (09:12)
[2016-11-13] MEDS: Metoprolol Succinate 25 MG Tab.ER PO SCH (11:27)
[2016-11-13] MEDS: Ondansetron 4 MG Tab.DIS PO PRN (18:00)
[2016-11-13] MEDS: Amitriptyline 25 MG Tab PO SCH (21:32)
[2016-11-13] MEDS: cefTRIAXone 1 GM in Sodium Chloride 0.9% 50 ML IV SCH (21:32)
[2016-11-14] MEDS: Heparin Sodium 5,000 Units/ML Vial SUBCUT SCH ×2 (05:32→15:30)
--- NOTE | 2016-11-14 07:37 | PN ---
DATE: 11/13/2016 SUBJECTIVE: Mrs. Yuen is an 86-year-old lady, who was admitted from home. Her was first admitted due to weakness following vomiting and diarrhea. He has been her primary caregiver at home, and she is confused and unable to care for herself; therefore, she was also admitted to the hospital. Mrs. Yuen has a history of dementia. She presented with increasing shortness of breath and was found to have anasarca with massive lower extremity edema, ascites, and bilateral pleural effusions. An echocardiogram was obtained, which showed an ejection fraction of 60% to 65% with no pericardial effusions. Her albumin level was only slightly decreased at 3.1, and the BNP was only modestly elevated at 138 and 242. She is being treated for diastolic congestive heart failure, ascites, and edema, most likely from hepatic failure. At time of admission, diuresis was attempted with furosemide, however, her renal function declined significantly. Creatinine went from 1.3 to 2.5. Review of her clinic records also show that on 07/22/2016, she weighed 160.5 pounds, and at the time of admission, weighed 203.5 pounds for an increase of 43 pounds in the last 4 months due to the anasarca. Since time of admission, she has been quite confused and at times yelling out, although she seems somewhat calmer now. Review of her clinical data shows that she is taking in adequate fluids. She is voiding and moving her bowels. Appetite is fair, and she is tolerating her diet. Vital signs have been stable, and she has remained afebrile. Her blood sugars are being monitored and are fairly well controlled. Repeat lab work today included a CBC and a basic panel. Hemoglobin and hematocrit are stable at 12.9 and 38.2. Platelets are slightly decreased at 143,000, and white count is normal. Chemistry showed sodium 133, potassium 4.3, BUN and creatinine have risen to 26 and 2.7 from an admission BUN and creatinine of 16 and 1.3. GFR at time of admission was 39 and has now declined to 17. Estimated creatinine clearance is only 11.7. Current medications are reviewed. OBJECTIVE: General: She is lying comfortably in her room. She participates, but is confused. She is a frail elderly female, who did not appear to be in any distress. Vital Signs: Blood pressure 89/46 and on repeat later in the morning 105/43, pulse 72 and regular, respiratory rate 20, oxygen saturation 100% on 2 L, and she was afebrile. HEENT: Unremarkable. ENT is clear. Chest: Diminished bilateral breath sounds. Heart: Regular rate and rhythm. Abdomen: Obese, soft, nontender. Extremities: Significant edema with bilateral compression wraps in place, which were not removed. Neurologically, she is intact. ASSESSMENT AND PLAN: Case was discussed later in the day with Dr. Lutz of Nephrology. Because she is not tolerating diuresis, we may need to consider temporary hemodialysis to remove the excess fluid which has accumulated over the last 4 months. We will try to get a hold of family on Thursday to discuss this. It is unclear how much of this Mrs. Yuen will understand, and we will need the family to participate in the decision. We are also looking at alf placement for her, and it is likely at this point, both she and her will be admitted next week to [facility] in [place]. If she does have dialysis, this certainly would be an appropriate site for admission because of close availability of the dialysis unit. Dr. Lutz will be here this weekend, and we will review her case at that time as well. No other changes are made today. [facility] [place] /[id number] MTDD
[2016-11-14] MEDS: Multivitamins,Therapeutic Tab PO SCH (09:01)
[2016-11-14] MEDS: Metoprolol Succinate 25 MG Tab.ER PO SCH (09:01)
[2016-11-14] MEDS: Clopidogrel 75 MG Tab PO SCH (09:02)
[2016-11-14] MEDS: Aspirin 81 MG Tab.Chew PO SCH (09:02)
[2016-11-14] MEDS: Potassium Chloride 10 MEQ Tab.ER PO SCH ×3 (09:02→17:35)
[2016-11-14] MEDS: Famotidine 20 MG Tab PO SCH (09:02)
[2016-11-14] MEDS: Insulin Aspart 100 Units/ML 3 ML Pen SUBCUT SCH ×3 (09:03→17:34)
[2016-11-14] MEDS: Furosemide 40 MG/4 ML VIAL IVPUSH SCH (09:03)
[2016-11-14] MEDS: NYSTATIN TOP SCH (09:04)
[2016-11-14] MEDS: Nystatin Ointment 15 GM Tube TOP SCH (09:04)
[2016-11-14] MEDS: ZINC OXIDE TOP SCH (09:04)
[2016-11-14] MEDS: HYDROCERIN TOP SCH (09:04)
[2016-11-14 09:05] VITALS: BP 119/45
--- NOTE | 2016-12-02 01:06 | DISCH ---
DISCHARGE DIAGNOSES: 1. Anasarca with ascites and bilateral pleural effusions. 2. Renal failure, stage 4. 3. Cirrhosis. 4. Type 2 diabetes, controlled. 5. Cognitive impairment. 6. Past medical history of hypertension and coronary artery disease. BRIEF HISTORY OF PRESENT ILLNESS: Mrs. Yuen is an 86-year-old lady, who was admitted from her home. Her was her primary caregiver there. He had become ill for several days prior to admission and was unable to care for himself or his . Because she could not be left at home, she was also brought to the Emergency Department for evaluation and admission. On presentation, it was found that she had been increasingly short of breath recently with increasing weakness and orthopnea. She has chronic lower extremity edema which had worsened. She was found to have diffuse anasarca and was admitted for further management. PERTINENT LABS AND X-RAYS: CBC at the time of admission showed normal white count. Platelets remained slightly decreased throughout the admission with an average platelet count of 140,000. Hemoglobin and hematocrit were stable and were 12.9 and 38.2 at discharge. Chemistry showed normal electrolytes. BUN and creatinine at the time of admission were 16 and 1.3 with a GFR of 30, but increased with attempts to diurese her. BUN and creatinine prior to discharge were 26 and 2.7 with a GFR of 17 and a creatinine clearance of 11.7. Magnesium was slightly low at 1.5. LFTs were unremarkable. Troponin was negative at 0.02. BNP was only minimally elevated at 138. Albumin was 3.1. Urinalysis showed a turbid yellow urine with a specific gravity of 1.025 with 0 to 5 wbc's per high-power field and many bacteria. One set of blood cultures remained with no growth after 5 days. Urine culture showed at least 3 colony types and no further workup was done. Stool was collected for C difficile toxin and was negative. IMAGING STUDIES: A 2-view chest x-ray taken at the time of admission showed small bilateral pleural effusions, right greater than left with passive atelectasis at each lung base. These were new findings when compared to previous chest x-ray from 2010. CT scan of the abdomen and pelvis was ordered to further evaluate her massive edema. This showed extensive anasarca. There were bibasilar dependent large pleural effusions and large volume ascites. The liver was small and nodular. No other masses or adenopathy was seen. An echocardiogram was obtained during the admission and showed a normal appearing left ventricle. Left ventricular systolic function was normal with an ejection fraction estimated at 60% to 65%. There was a mildly dilated right ventricle with normal systolic function. A 12-lead EKG was performed at the time of admission, and showed normal sinus rhythm with a ventricular rate of 92. There were normal axis and intervals. Occasional PAC. Poor R-wave progression. There were no acute ST-T wave changes. HOSPITAL COURSE: Mrs. Yuen was admitted as an acute inpatient. Diuresis was attempted with furosemide. However, her renal function declined significantly. Creatinine went from 1.3 to 2.5. We also were able to obtain information that showed that on July 22, 2016, she had weighed 160.5 pounds and at the time of admission, she weighed 203.5 pounds for an increase to 43 pounds in the last 4 months secondary to the anasarca. Mrs. Yuen has cognitive impairment and probable dementia. Initially, she was quite confused and yelling out, although this improved with time and she became more cooperative. Review of her clinical data showed that she was taking inadequate fluids. She was voiding and moving her bowels. Her appetite was fair and she was tolerating her diet. Vital signs were stable and she remained afebrile. Blood sugars were monitored and were fairly well controlled. ASSESSMENT AND PLAN: The case was discussed with Dr. Lutz of Nephrology. Because she is not tolerating diuresis and is very fluid overloaded, consideration may need to be given to temporary or permanent hemodialysis to remove the excess fluid which has accumulated over the last 4 months. It is also clear that we will need to seek placement for both and Mrs. Yuen as they no longer appear to be able to care for themselves at home and family is not involved in their care. We did obtain beds for both of them at [facility] in [place]. This probably is the best place for them as they both and Mrs. Yuen will need ongoing care for the multiple medical problems found during both of their admissions. We arranged for Mrs. Yuen to be transferred to [facility] in [place] for further management. She will be discharged to [facility] following treatment there. PHYSICAL EXAMINATION: General: On the day of discharge, she was pleasantly confused, although we were able to tell her that she was being transferred. She seemed to understand that and was in agreement with being transferred. She voiced no new concerns or complaints. No chest pain or shortness of breath. No other symptoms of concern. Vital Signs: Blood pressure was 119/45, pulse 67 and regular, respiratory rate 20 and nonlabored, oxygen saturation 96% on room air, and she was afebrile. HEENT: Unremarkable. ENT was clear. Chest: Showed diminished bilateral breath sounds. Heart: Showed regular rate and rhythm. Abdomen: Obese, soft, and nontender. Extremities: Continue to show significant bilateral lower extremity edema with bilateral compression wraps in place. Neurologic: She was intact. DISCHARGE MEDICATIONS: Will be subject to change upon transfer to [facility], but included this time: 1. Potassium chloride 10 mEq t.i.d. 2. Plavix 75 mg daily. 3. Metoprolol tartrate 25 mg twice a day. 4. Chlorthalidone 25 mg daily. 5. Amitriptyline 25 mg daily. 6. Glimepiride 1 mg daily. ALLERGIES: Lidocaine and amlodipine. CONDITION AT THE TIME OF TRANSFER: Hemodynamically and neurologically stable. [facility] /[id number] MTDD
== END 2016-11-14 18:40 | DRG 291 ==
LOC: DL.ED 18:40 → DL.MS 21:22 → UNDOADMOB 21:22 → OBSVTOIN 22:22 → DL.MS 22:22
PROVIDERS: ADMIT Internal Medicine; ATTEND Internal Medicine
PROC: B246ZZZ Ultrasonography of Right and Left Heart (ICD-10-PCS; principal; 2016-11-10)
DX: I13.0 Hypertensive heart and chronic kidney disease with heart failure and stage 1 through stage 4 chronic kidney disease, or unspecified chronic kidney disease (principal); I50.31 Acute diastolic (congestive) heart failure; N17.9 Acute kidney failure, unspecified; F03.91 Unspecified dementia, unspecified severity, with behavioral disturbance; F05 Delirium due to known physiological condition; N18.4 Chronic kidney disease, stage 4 (severe); R53.1 Weakness; E11.22 Type 2 diabetes mellitus with diabetic chronic kidney disease; I25.10 Atherosclerotic heart disease of native coronary artery without angina pectoris; Z66 Do not resuscitate; I87.303 Chronic venous hypertension (idiopathic) without complications of bilateral lower extremity; R23.8 Other skin changes; Z95.5 Presence of coronary angioplasty implant and graft; Z79.01 Long term (current) use of anticoagulants; Z79.84 Long term (current) use of oral hypoglycemic drugs; Z79.899 Other long term (current) drug therapy
CPT/HCPCS: 36415; 51702; 71020; 74176; 80048; 80053; 81001; 82962; 83605; 83735; 83880; 84100; 84484; 85025; 87040; 87086; 87493; 93005; 93010; 93306; 97110-GP; 97116-GP; 97140-GO; 97162-GP; 97166-GO; 97530-GP; 99283; 99285; A9270-GY; J0696; J1644; J1815-GY; J1940; J2060; J3480; J7050